=== PATIENT | female | born 1980 | race Two or more races ===

== ENCOUNTER 2017-11-20 11:02 | Emergency (ER) | payer MEDICAID ==
[~2017-11-20] VITALS: Ht 170.2 cm; Wt 70.3 kg
[2017-11-20] MEDS ORDERED: SODIUM CHLORIDE 0.9% 1,000 ML IVB ONE (11:18)
[2017-11-20] MEDS ORDERED: NALOXONE HCL 0.4 MG/ML VIAL IV ONE (11:30)
[2017-11-20 11:53] LABS: Basophils # (auto) 0 uL; Basophils % (auto) 0.4 % (0.0-2.0); Eosinophils # (auto) 0 uL; Eosinophils % (auto) 0.1 % (0.0-7.0); Lymphocytes # (auto) 1.4 uL; Monocytes # (auto) 0.3 uL; Platelet Count (auto) 185 10^3/uL (140-450)
[2017-11-20 11:55] LABS: Hematocrit 30.3 % (36.0-46.0); Lymphocytes % (auto) 24.6 % (10.0-50.0); Mean Corpuscular Hemoglobin 23.2 pg (28.0-32.0); Mean Corpuscular Hgb Conc. 33.1 g/dL (32.0-36.0); Mean Corpuscular Volume 69.9 fL (80.0-100.0); Monocytes % (auto) 4.6 % (0.0-12.0); Neutrophils # (auto) 4.1 uL; Neutrophils % (auto) 70.3 % (37.0-80.0); Nucleated Red Blood Cells % 0.1 %; Red Blood Cells 4.33 10^6/uL (4.0-5.20); Urine Bacteria NONE SEEN /hpf (None Seen); Urine Blood Negative /uL (Negative); Urine Specific Gravity 1.006 (1.001-1.035); Urine WBC <1 /hpf (0 - 5); White Blood Cell 5.8 10^3/uL (4.4-10.8)
[2017-11-20 12:00] LABS: Red Cell Distribution Width 22.7 % (11.8-14.3)
[2017-11-20] MEDS ORDERED: THIAMINE INJ 100 MG, MULTIPLE VITAMIN 10 ML, FOLIC ACID 1 MG, MAGNESIUM SULF SDV 50% 8 ... IV ONE ×5 (12:00)
[2017-11-20 12:05] LABS: INR 0.98 (0.9-1.15); Partial Thromboplastin Time 20.2 sec (23.78-33.04); Prothrombin Time 10.5 sec (9.27-12.13)
[2017-11-20 12:18] LABS: Albumin 3.5 g/dL (3.4-5.0); BUN/Creatinine Ratio 16.7; Bilirubin, Total 0.8 mg/dL (0.2-1.0); Calcium 7.6 mg/dL (8.5-10.1); Potassium 3.4 mmol/L (3.5-5.1); Total Protein 7.1 g/dL (6.4-8.2)
[2017-11-20 12:31] LABS: Amphetamine Screen, Urine NEGATIVE (NEGATIVE); Barbiturate Scree,Urine NEGATIVE (NEGATIVE); Benzodiazephine Screen, Urine NEGATIVE (NEGATIVE); Cannabinoid Screen, Urine NEGATIVE (NEGATIVE); Cocaine Screen, Urine NEGATIVE (NEGATIVE); Opiate Scree,Urine NEGATIVE (NEGATIVE); Phencyclidine Screen, Urine NEGATIVE (NEGATIVE)
[2017-11-20] MEDS ORDERED: SODIUM CHLORIDE 0.9% 1,000 ML IV ONE ×2 (13:15→13:45)
[2017-11-20 16:41] VITALS: BP 129/77
== END 2017-11-20 17:23 | disposition left against medical advice (07) ==
LOC: EDBD → ER 11:02
DX: F10.120 Alcohol abuse with intoxication, uncomplicated (principal); F10.20 Alcohol dependence, uncomplicated; Z53.29 Procedure and treatment not carried out because of patient's decision for other reasons
CPT/HCPCS: 36415; 51702; 70450; 80053; 80307; 80320; 81001; 85025; 85610; 85730; 94761; 96361; 96365; 96366; 96375; 99285; J2310; J3411; J3475; 99291

== ENCOUNTER 2017-11-26 16:15 | Emergency (ER) | payer MEDICAID ==
[~2017-11-26] VITALS: Ht 167.6 cm; Wt 54.4 kg
[2017-11-26] MEDS ORDERED: SODIUM CHLORIDE 0.9% 2,000 ML IV ONE (17:02)
[2017-11-26 17:14] LABS: Basophils # (auto) 0 uL; Eosinophils # (auto) 0 uL; Hemoglobin 9.4 g/dL (12.2-16.2); Monocytes # (auto) 0.2 uL; Platelet Count (auto) 63 10^3/uL (140-450)
[2017-11-26 17:15] LABS: Basophils % (auto) 0.5 % (0.0-2.0); Eosinophils % (auto) 0.8 % (0.0-7.0); Hematocrit 28.9 % (36.0-46.0); Lymphocytes % (auto) 33.8 % (10.0-50.0); Mean Corpuscular Hemoglobin 23.2 pg (28.0-32.0); Mean Corpuscular Hgb Conc. 32.5 g/dL (32.0-36.0); Mean Corpuscular Volume 71.3 fL (80.0-100.0); Monocytes % (auto) 7.9 % (0.0-12.0); Neutrophils # (auto) 1.7 uL; Nucleated Red Blood Cells % 0.2 %; Red Blood Cells 4.05 10^6/uL (4.0-5.20)
[2017-11-26 17:22] LABS: Urine Bacteria NONE SEEN /hpf (None Seen); Urine Blood 1+ /uL (Negative); Urine Mucus FEW (None Seen); Urine Specific Gravity 1.008 (1.001-1.035); Urine WBC 3 /hpf (0 - 5)
[2017-11-26 17:26] LABS: Red Cell Distribution Width 24.4 % (11.8-14.3)
[2017-11-26] MEDS ORDERED: THIAMINE INJ 100 MG, MULTIPLE VITAMIN 10 ML, FOLIC ACID 1 MG, MAGNESIUM SULF SDV 50% 8 ... IV SCH ×5 (17:30)
[2017-11-26 17:40] LABS: Amphetamine Screen, Urine NEGATIVE (NEGATIVE); Barbiturate Scree,Urine NEGATIVE (NEGATIVE); Benzodiazephine Screen, Urine NEGATIVE (NEGATIVE); Cannabinoid Screen, Urine NEGATIVE (NEGATIVE); Cocaine Screen, Urine NEGATIVE (NEGATIVE); Opiate Scree,Urine NEGATIVE (NEGATIVE); Phencyclidine Screen, Urine NEGATIVE (NEGATIVE)
[2017-11-26 17:48] LABS: Albumin 3.5 g/dL (3.4-5.0); BUN/Creatinine Ratio 8.3; Bilirubin, Total 0.5 mg/dL (0.2-1.0); Calcium 7.7 mg/dL (8.5-10.1)
[2017-11-26 17:53] LABS: Potassium 2.6 mmol/L (3.5-5.1)
[2017-11-26] MEDS ORDERED: POTASSIUM CHL 20 Meq TABLET PO ONE (18:00)
[2017-11-26] MEDS: POTASSIUM CHL 20MEQ/100ML 100 ML IV SCH ×2 (19:00→21:29)
[2017-11-27 01:20] VITALS: BP 132/75
[2017-11-27 02:40] LABS: BUN/Creatinine Ratio 9.1; Calcium 6.6 mg/dL (8.5-10.1); Potassium 3.4 mmol/L (3.5-5.1)
[2017-11-27 02:57] LABS: Bilirubin, Total 0.4 mg/dL (0.2-1.0)
== END 2017-11-27 02:57 | disposition home or self-care (01) ==
LOC: EDBD → EDSEX 16:15 → ER 16:18
DX: M54.2 Cervicalgia (principal); F10.129 Alcohol abuse with intoxication, unspecified; Y90.8 Blood alcohol level of 240 mg/100 ml or more
CPT/HCPCS: 36415; 70450; 70486; 72040; 72125; 80053; 80307; 80320; 81001; 81025; 85025; 96365; 96366; 96368; 99285; J3411; J3475; J3480; J7030

== ENCOUNTER 2017-11-28 14:42 | Inpatient (IN) | payer MEDICAID ==
[~2017-11-28] VITALS: Ht 165.1 cm; Wt 68.5 kg
[2017-11-28 15:28] LABS: Basophils # (auto) 0 uL; Eosinophils # (auto) 0 uL; Lymphocytes # (auto) 1.3 uL; Monocytes # (auto) 0.2 uL; Neutrophils # (auto) 1.5 uL; Platelet Count (auto) 51 10^3/uL (140-450); White Blood Cell 3.1 10^3/uL (4.4-10.8)
[2017-11-28 15:30] LABS: Basophils % (auto) 0.8 % (0.0-2.0); Eosinophils % (auto) 1.6 % (0.0-7.0); Hematocrit 26.9 % (36.0-46.0); Hemoglobin 8.7 g/dL (12.2-16.2); Lymphocytes % (auto) 42.4 % (10.0-50.0); Mean Corpuscular Hemoglobin 23.3 pg (28.0-32.0); Mean Corpuscular Hgb Conc. 32.5 g/dL (32.0-36.0); Mean Corpuscular Volume 71.6 fL (80.0-100.0); Monocytes % (auto) 6.3 % (0.0-12.0); Neutrophils % (auto) 48.9 % (37.0-80.0); Red Blood Cells 3.75 10^6/uL (4.0-5.20)
[2017-11-28 15:42] LABS: Red Cell Distribution Width 23.9 % (11.8-14.3)
[2017-11-28 15:47] LABS: BUN/Creatinine Ratio 11.3; Bilirubin, Total 0.3 mg/dL (0.2-1.0); Calcium 6.8 mg/dL (8.5-10.1); Magnesium 2.2 mg/dL (1.6-2.6); Potassium 3.1 mmol/L (3.5-5.1); Total Protein 6.1 g/dL (6.4-8.2)
[2017-11-28 16:28] LABS: Blood Alcohol 525.3 mg/dL (0-5)
[2017-11-28 17:19] LABS: Urine WBC None Seen /hpf (0 - 5)
[2017-11-28 17:21] LABS: Partial Thromboplastin Time 23.5 sec (23.78-33.04); Prothrombin Time 10.7 sec (9.27-12.13)
[2017-11-28 17:23] LABS: Acetaminophen < 2.0 ug/mL (10-30); Salicylate < 1.7 mg/dL (2.8-20.0)
[2017-11-28 17:43] LABS: Urine Bacteria NONE SEEN /hpf (None Seen); Urine Blood Negative /uL (Negative); Urine Specific Gravity 1.004 (1.001-1.035)
[2017-11-28 17:44] LABS: Urine Pregnacy Test Negative (Negative)
[2017-11-28 17:48] LABS: Amphetamine Screen, Urine NEGATIVE (NEGATIVE); Barbiturate Scree,Urine NEGATIVE (NEGATIVE); Benzodiazephine Screen, Urine NEGATIVE (NEGATIVE); Cannabinoid Screen, Urine POSITIVE (NEGATIVE); Cocaine Screen, Urine NEGATIVE (NEGATIVE); Opiate Scree,Urine NEGATIVE (NEGATIVE); Phencyclidine Screen, Urine NEGATIVE (NEGATIVE)
[2017-11-28] MEDS ORDERED: SODIUM CHLORIDE 0.9% 1,000 ML IV ONE ×3 (18:00→18:45)
[2017-11-28] MEDS ORDERED: THIAMINE INJ 100 MG, MULTIPLE VITAMIN 10 ML, FOLIC ACID 1 MG, MAGNESIUM SULF SDV 50% 8 ... IV SCH ×5 (18:30)
[2017-11-28] MEDS ORDERED: DOCUSATE SOD 100 MG CAP PO PRN (18:45)
[2017-11-28] MEDS ORDERED: POTASSIUM CHL 20MEQ/100ML 100 ML IV ONE (18:45)
[2017-11-28] MEDS ORDERED: ONDANSETRON HCL 4 MG/2 ML VIAL IV PRN (18:45)
[2017-11-28] MEDS ORDERED: ALUM & MAG HYDROX-SIMETH LIQ(MAALOX) 30 ML PO PRN (18:45)
[2017-11-28] MEDS ORDERED: HYDROcodone-ACET 5/325MG TAB PO PRN (18:45)
[2017-11-28] MEDS ORDERED: chlordiazePOXIDE HCL 25 MG CAP PO PRN (18:45)
[2017-11-28] MEDS ORDERED: ACETAMINOPHEN 325 MG TAB PO PRN (18:45)
[2017-11-28] MEDS ORDERED: NITROGLYCERIN 0.4 MG SL TAB SL PRN (18:45)
[2017-11-28] MEDS ORDERED: MORPHINE SULF INJ 2 MG/ML SYRINGE 1ML IV PRN ×2 (18:45)
[2017-11-28] MEDS: SODIUM CHLORIDE 0.9% 1,000 ML IV SCH (19:09)
[2017-11-28] MEDS: LORazepam 2MG/ML-1ML VIAL IV PRN ×2 (20:02→21:45)
[2017-11-28 21:50] VITALS: BP 109/62
[2017-11-28] MEDS ORDERED: ATENOLOL 25 MG TAB PO SCH (22:00)
[2017-11-28] MEDS ORDERED: FAMOTIDINE 20 MG TAB PO SCH (22:00)
[2017-11-28] MEDS: GABAPENTIN 300 MG CAP PO SCH (22:00)
[2017-11-28 23:18] VITALS: BP 109/62
[2017-11-29] MEDS ORDERED: ACET-1156 PO (01:32)
[2017-11-29] MEDS: SODIUM CHLORIDE 0.9% 1,000 ML IV SCH (03:15)
[2017-11-29 04:43] VITALS: BP 129/80
[2017-11-29] MEDS: GABAPENTIN 300 MG CAP PO SCH (05:21)
[2017-11-29 06:07] LABS: White Blood Cell 2.6 10^3/uL (4.4-10.8)
[2017-11-29 06:11] LABS: Hematocrit 23.7 % (36.0-46.0); Mean Corpuscular Hgb Conc. 33.6 g/dL (32.0-36.0); Mean Corpuscular Volume 71.5 fL (80.0-100.0); Red Blood Cells 3.31 10^6/uL (4.0-5.20)
[2017-11-29 06:12] LABS: Red Cell Distribution Width 23.8 % (11.8-14.3)
[2017-11-29 06:13] LABS: Platelet Count (auto) 46 10^3/uL (140-450)
[2017-11-29 06:14] LABS: Band Neutrophils % (manual) 0; Basophils % (manual) 0 (0.0-2.0); Blast Cells 0; Metamyelocytes % 0; Myelocytes % 0; Promyelocytes % 0; Reactive Lymphocytes 0
[2017-11-29 06:28] LABS: Potassium 3.1 mmol/L (3.5-5.1)
[2017-11-29 06:35] LABS: Albumin 2.6 g/dL (3.4-5.0); BUN/Creatinine Ratio 11.9; Calcium 6.2 mg/dL (8.5-10.1)
[2017-11-29 06:37] LABS: Bilirubin, Total 0.5 mg/dL (0.2-1.0); Total Protein 5.3 g/dL (6.4-8.2)
[2017-11-29 06:56] LABS: Lymphocytes % (manual) 64 (10.0-50.0); Monocytes % (manual) 3 (0-12)
[2017-11-29 06:57] LABS: Eosinophils % (manual) 1 (0-7)
[2017-11-29 08:00] VITALS: BP 135/82
[2017-11-29] MEDS ORDERED: Ensure Enlive Strawberry 8oz Bottle PO SCH (08:00)
[2017-11-29] MEDS ORDERED: MULTIPLE VITAMIN TAB PO SCH (10:00)
== END 2017-11-29 09:30 | disposition left against medical advice (07) | DRG 52 ==
LOC: EDBD → ER 14:45 → TELE 14:46 → TELE-WESTW 21:50
PROVIDERS: ADMIT Internal Medicine; ATTEND Internal Medicine
DX: G92 Toxic encephalopathy (principal); D69.6 Thrombocytopenia, unspecified; R65.10 Systemic inflammatory response syndrome (SIRS) of non-infectious origin without acute organ dysfunction; E44.0 Moderate protein-calorie malnutrition; E83.51 Hypocalcemia; F10.129 Alcohol abuse with intoxication, unspecified; E87.6 Hypokalemia; D50.9 Iron deficiency anemia, unspecified; S00.10XA Contusion of unspecified eyelid and periocular area, initial encounter; Z59.0 Homelessness; Z91.410 Personal history of adult physical and sexual abuse; F17.200 Nicotine dependence, unspecified, uncomplicated; Z53.21 Procedure and treatment not carried out due to patient leaving prior to being seen by health care provider; Z68.25 Body mass index [BMI] 25.0-25.9, adult
CPT/HCPCS: 36415; 51702; 70450; 71045; 80053; 80307; 80320; 80329; 81001; 81025; 83735; 84702; 85007; 85025; 85027; 85610; 85730; 93005; 94761; 96361; 96365; 96375; J3480

== ENCOUNTER 2017-11-30 18:43 | Emergency (ER) | payer MEDICAID ==
[~2017-11-30] VITALS: Ht 167.6 cm; Wt 59.0 kg
[~2017-11-30 18:43] MED LIST: ACET-1156 PO
[2017-11-30 18:50] VITALS: BP 135/79
== END 2017-11-30 21:45 | disposition left against medical advice (07) ==
LOC: EDBD → ER 18:47
DX: F10.10 Alcohol abuse, uncomplicated (principal); Z53.21 Procedure and treatment not carried out due to patient leaving prior to being seen by health care provider

== ENCOUNTER 2017-12-07 19:04 | Emergency (ER) | payer SELFPAY ==
[~2017-12-07] VITALS: Ht 170.2 cm; Wt 70.3 kg
[2017-12-07] MEDS ORDERED: SODIUM CHLORIDE 0.9% 1,000 ML IVB ONE (19:22)
[2017-12-07 20:12] LABS: Urine WBC None Seen /hpf (0 - 5)
[2017-12-07 20:46] LABS: Partial Thromboplastin Time 25.4 sec (23.78-33.04); Prothrombin Time 10.7 sec (9.27-12.13)
[2017-12-07 20:51] LABS: Urine Bacteria FEW /hpf (None Seen); Urine Blood 1+ /uL (Negative); Urine Specific Gravity 1.002 (1.001-1.035)
[2017-12-07 20:51] LABS: Lactic Acid w/Reflex 2.4 mmol/L (0.4-2.0)
[2017-12-07 20:58] LABS: Amphetamine Screen, Urine NEGATIVE (NEGATIVE); Barbiturate Scree,Urine NEGATIVE (NEGATIVE); Benzodiazephine Screen, Urine NEGATIVE (NEGATIVE); Cannabinoid Screen, Urine NEGATIVE (NEGATIVE); Cocaine Screen, Urine NEGATIVE (NEGATIVE); Opiate Scree,Urine NEGATIVE (NEGATIVE); Phencyclidine Screen, Urine NEGATIVE (NEGATIVE)
[2017-12-07 21:00] LABS: Platelet Count (auto) 33 10^3/uL (140-450); White Blood Cell 2.4 10^3/uL (4.4-10.8)
[2017-12-07 21:01] LABS: Alanine Aminotransferase 86 U/L (13-56); Albumin 3.4 g/dL (3.4-5.0); Alkaline Phosphatase 80 U/L (45-117); Anion Gap 8 (5-15); Aspartate Aminotransferase 162 U/L (15-37); BUN/Creatinine Ratio 7.4; Bilirubin, Total 0.6 mg/dL (0.2-1.0); Blood Urea Nitrogen 5 mg/dL (7-18); Calcium 7.6 mg/dL (8.5-10.1); Carbon Dioxide 27 mmol/L (21-32); Chloride 106 mmol/L (98-107); GFR African American 125 mL/min; GFR Non-African American 103 mL/min; Glucose 90 mg/dL (74-106); Potassium 3.2 mmol/L (3.5-5.1); Sodium 141 mmol/L (136-145); Total Protein 6.5 g/dL (6.4-8.2)
[2017-12-07 21:02] LABS: Hematocrit 27.1 % (36.0-46.0); Hemoglobin 8.9 g/dL (12.2-16.2); Mean Corpuscular Hemoglobin 24.2 pg (28.0-32.0); Mean Corpuscular Hgb Conc. 32.8 g/dL (32.0-36.0); Mean Corpuscular Volume 73.7 fL (80.0-100.0); Red Blood Cells 3.68 10^6/uL (4.0-5.20)
[2017-12-07 21:17] LABS: Red Cell Distribution Width 26.7 % (11.8-14.3)
[2017-12-07 21:19] LABS: Band Neutrophils % (manual) 0; Basophils % (manual) 0 (0.0-2.0); Blast Cells 0; Metamyelocytes % 0; Myelocytes % 0; Promyelocytes % 0; Reactive Lymphocytes 0
[2017-12-07 22:10] LABS: Eosinophils % (manual) 1 (0-7); Lymphocytes % (manual) 55 (10.0-50.0); Monocytes % (manual) 4 (0-12)
[2017-12-07] MEDS ORDERED: SODIUM CHLORIDE 0.9% 1,000 ML IV ONE (22:45)
[2017-12-08 06:09] VITALS: BP 122/83
== END 2017-12-08 07:56 | disposition home or self-care (01) ==
LOC: EDBD → ER 19:09 → EDUNIT# 19:09 → ER 12-08 07:56
DX: F10.120 Alcohol abuse with intoxication, uncomplicated (principal); Z59.0 Homelessness
CPT/HCPCS: 36415; 36600; 70450; 71045; 80053; 80307; 80320; 81001; 81025; 82805; 83605; 83735; 84484; 85007; 85027; 85610; 85730; 93005; 96360; 96361; 99285; J7030

== ENCOUNTER 2017-12-12 01:12 | Emergency (ER) | payer MEDICAID ==
[~2017-12-12] VITALS: Ht 165.1 cm; Wt 59.0 kg
[2017-12-12 02:22] LABS: Hemoglobin 8.8 g/dL (12.2-16.2); Platelet Count (auto) 47 10^3/uL (140-450); Red Blood Cells 3.68 10^6/uL (4.0-5.20)
[2017-12-12 02:23] LABS: Hematocrit 27.5 % (36.0-46.0); Mean Corpuscular Hgb Conc. 32.1 g/dL (32.0-36.0); Mean Corpuscular Volume 74.7 fL (80.0-100.0)
[2017-12-12 02:32] LABS: Amphetamine Screen, Urine NEGATIVE (NEGATIVE); Barbiturate Scree,Urine NEGATIVE (NEGATIVE); Benzodiazephine Screen, Urine NEGATIVE (NEGATIVE); Cannabinoid Screen, Urine NEGATIVE (NEGATIVE); Cocaine Screen, Urine NEGATIVE (NEGATIVE); Opiate Scree,Urine NEGATIVE (NEGATIVE); Phencyclidine Screen, Urine NEGATIVE (NEGATIVE); Urine Bacteria NONE SEEN /hpf (None Seen); Urine Blood Negative /uL (Negative); Urine Specific Gravity 1.002 (1.001-1.035); Urine WBC <1 /hpf (0 - 5)
[2017-12-12 02:38] LABS: INR 1.05 (0.9-1.15); Partial Thromboplastin Time 23.4 sec (23.78-33.04); Prothrombin Time 11.2 sec (9.27-12.13)
[2017-12-12 02:41] LABS: Albumin 3.3 g/dL (3.4-5.0); Anion Gap 9 (5-15); BUN/Creatinine Ratio 4.9; Blood Urea Nitrogen 3 mg/dL (7-18); Calcium 6.9 mg/dL (8.5-10.1); Carbon Dioxide 31 mmol/L (21-32); Chloride 102 mmol/L (98-107); GFR African American 148 mL/min; GFR Non-African American 122 mL/min; Glucose 106 mg/dL (74-106); Salicylate < 1.7 mg/dL (2.8-20.0); Sodium 142 mmol/L (136-145)
[2017-12-12 02:43] LABS: Lactic Acid w/Reflex 2.2 mmol/L (0.4-2.0)
[2017-12-12 02:48] LABS: Acetaminophen < 2.0 ug/mL (10-30)
[2017-12-12 02:50] LABS: Alkaline Phosphatase 82 U/L (45-117); Aspartate Aminotransferase 189 U/L (15-37); Bilirubin, Total 0.5 mg/dL (0.2-1.0); Red Cell Distribution Width 27.5 % (11.8-14.3); Total Protein 6.5 g/dL (6.4-8.2)
[2017-12-12 02:53] LABS: Alanine Aminotransferase 93 U/L (13-56)
[2017-12-12 02:54] LABS: Potassium 2.9 mmol/L (3.5-5.1); White Blood Cell 1.7 10^3/uL (4.4-10.8)
[2017-12-12 02:56] LABS: Band Neutrophils % (manual) 0; Basophils % (manual) 0 (0.0-2.0); Blast Cells 0; Eosinophils % (manual) 0 (0-7); Metamyelocytes % 0; Myelocytes % 0; Promyelocytes % 0; Reactive Lymphocytes 0
[2017-12-12 03:14] LABS: Lymphocytes % (manual) 68 (10.0-50.0); Monocytes % (manual) 10 (0-12)
[2017-12-12] MEDS ORDERED: SODIUM CHLORIDE 0.9% 3,000 ML IV ONE (03:45)
[2017-12-12] MEDS: POTASSIUM CHL 20MEQ/100ML 100 ML IV SCH ×3 (03:57→08:37)
[2017-12-12] MEDS ORDERED: THIAMINE INJ 100 MG, MULTIPLE VITAMIN 10 ML, FOLIC ACID 1 MG, MAGNESIUM SULF SDV 50% 8 ... IV ONE ×5 (09:45)
[2017-12-12 10:48] VITALS: BP 129/91
== END 2017-12-12 12:26 | disposition left against medical advice (07) ==
LOC: EDUNIT# 01:20 → EDBD 01:20 → ER 01:20
DX: F10.129 Alcohol abuse with intoxication, unspecified (principal); R41.82 Altered mental status, unspecified; E87.6 Hypokalemia; G93.89 Other specified disorders of brain; Z79.899 Other long term (current) drug therapy; Y90.8 Blood alcohol level of 240 mg/100 ml or more
CPT/HCPCS: 36415; 51702; 70450; 71045; 80053; 80307; 80320; 80329; 81001; 83605; 84132; 84484; 85007; 85027; 85610; 85730; 93005; 94761; 96361; 96365; 96366; 96368; 99285; J3411; J3475; J3480; J7030

== ENCOUNTER 2017-12-27 23:53 | Emergency (ER) | payer MEDICAID ==
[~2017-12-27] VITALS: Ht 167.6 cm; Wt 54.4 kg
[2017-12-28 00:57] LABS: Basophils # (auto) 0 uL; Basophils % (auto) 0.8 % (0.0-2.0); Eosinophils # (auto) 0 uL; Eosinophils % (auto) 1.1 % (0.0-7.0); Hemoglobin 9.3 g/dL (12.2-16.2); Monocytes # (auto) 0.4 uL; Monocytes % (auto) 11.4 % (0.0-12.0); Neutrophils # (auto) 2.4 uL
[2017-12-28 00:58] LABS: Urine Bacteria NONE SEEN /hpf (None Seen); Urine Blood 1+ /uL (Negative); Urine Mucus FEW (None Seen); Urine Specific Gravity 1.018 (1.001-1.035); Urine WBC 3 /hpf (0 - 5)
[2017-12-28 00:59] LABS: Hematocrit 28.5 % (36.0-46.0); Lymphocytes # (auto) 0.9 uL; Lymphocytes % (auto) 24.6 % (10.0-50.0); Mean Corpuscular Hemoglobin 25.2 pg (28.0-32.0); Mean Corpuscular Hgb Conc. 32.7 g/dL (32.0-36.0); Neutrophils % (auto) 62.1 % (37.0-80.0); White Blood Cell 3.8 10^3/uL (4.4-10.8)
[2017-12-28 01:04] LABS: Red Cell Distribution Width 25.7 % (11.8-14.3)
[2017-12-28 01:05] LABS: Platelet Count (auto) 108 10^3/uL (140-450)
[2017-12-28 01:07] LABS: INR 0.93 (0.9-1.15); Partial Thromboplastin Time 20.8 sec (23.78-33.04)
[2017-12-28 01:13] LABS: Albumin 3.8 g/dL (3.4-5.0); BUN/Creatinine Ratio 14.9; Calcium 8.6 mg/dL (8.5-10.1); Magnesium 1.7 mg/dL (1.6-2.6)
[2017-12-28 01:15] LABS: Bilirubin, Total 1.1 mg/dL (0.2-1.0); Total Protein 7.7 g/dL (6.4-8.2)
[2017-12-28 01:16] LABS: Alcohol, Urine < 3.0 mg/dL (0-5); Amphetamine Screen, Urine NEGATIVE (NEGATIVE); Barbiturate Scree,Urine NEGATIVE (NEGATIVE); Benzodiazephine Screen, Urine NEGATIVE (NEGATIVE); Cannabinoid Screen, Urine NEGATIVE (NEGATIVE); Cocaine Screen, Urine NEGATIVE (NEGATIVE); Opiate Scree,Urine NEGATIVE (NEGATIVE); Phencyclidine Screen, Urine NEGATIVE (NEGATIVE)
[2017-12-28] MEDS ORDERED: LORazepam 0.5 MG TAB PO ONE (03:00)
[2017-12-28] MEDS ORDERED: THIAMINE 100mg/ml INJ (200mg/2ml VIAL) ONE (05:28)
[2017-12-28] MEDS ORDERED: LORazepam 2MG/ML-1ML VIAL IV ONE (05:30)
[2017-12-28] MEDS ORDERED: THIAMINE INJ 100 MG, MULTIPLE VITAMIN 10 ML, FOLIC ACID 1 MG, MAGNESIUM SULF SDV 50% 8 ... IV ONE ×5 (05:30)
[2017-12-28] MEDS ORDERED: cloNIDine HCL 0.1 MG TAB ONE (05:36)
[2017-12-28 05:37] VITALS: BP 171/109
[2017-12-28] MEDS ORDERED: cloNIDine HCL 0.1 MG TAB PO ONE (05:45)
== END 2017-12-28 06:25 | disposition home or self-care (01) ==
LOC: ER 23:53
DX: K72.90 Hepatic failure, unspecified without coma (principal); K12.0 Recurrent oral aphthae; L30.9 Dermatitis, unspecified; Z95.0 Presence of cardiac pacemaker
CPT/HCPCS: 36415; 80053; 80307; 80320; 81001; 83735; 84702; 85025; 85610; 85730; 96365; 96375; 99284; J2060; J3411; J3475; J7030

== ENCOUNTER 2018-07-02 07:31 | Emergency (ER) | payer MEDICAID ==
[~2018-07-02] VITALS: Ht 160 cm; Wt 59.0 kg
[2018-07-02] MEDS ORDERED: SODIUM CHLORIDE 0.9% 1,000 ML IV ONE ×2 (08:37)
[2018-07-02 09:41] LABS: Basophils # (auto) 0 uL; Eosinophils # (auto) 0 uL; Eosinophils % (auto) 0.3 % (0.0-7.0); Lymphocytes # (auto) 1.1 uL; Lymphocytes % (auto) 25.7 % (10.0-50.0); Mean Corpuscular Hemoglobin 24.7 pg (28.0-32.0); Monocytes # (auto) 0.2 uL
[2018-07-02 09:43] LABS: Basophils % (auto) 0.4 % (0.0-2.0); Hematocrit 35.9 % (36.0-46.0); Hemoglobin 11.7 g/dL (12.2-16.2); Mean Corpuscular Hgb Conc. 32.6 g/dL (32.0-36.0); Mean Corpuscular Volume 75.8 fL (80.0-100.0); Monocytes % (auto) 4.9 % (0.0-12.0); Neutrophils # (auto) 2.8 uL; Neutrophils % (auto) 68.7 % (37.0-80.0); Nucleated Red Blood Cells % 0.1 %; Platelet Count (auto) 168 10^3/uL (140-450); Red Blood Cells 4.74 10^6/uL (4.0-5.20); White Blood Cell 4.1 10^3/uL (4.4-10.8)
[2018-07-02 09:47] LABS: Red Cell Distribution Width 21.7 % (11.8-14.3)
[2018-07-02 09:51] LABS: Potassium 3.4 mmol/L (3.5-5.1)
[2018-07-02 09:54] LABS: Albumin 3.6 g/dL (3.4-5.0); Calcium 7.5 mg/dL (8.5-10.1)
[2018-07-02 09:58] LABS: Salicylate < 1.7 mg/dL (2.8-20.0)
[2018-07-02 10:01] LABS: Bilirubin, Total 0.3 mg/dL (0.2-1.0); Total Protein 6.6 g/dL (6.4-8.2)
[2018-07-02 10:02] LABS: Acetaminophen < 2.0 ug/mL (10-30)
[2018-07-02 12:07] VITALS: BP 99/56
== END 2018-07-02 13:00 | disposition left against medical advice (07) ==
LOC: EDBD 07:31 → ER 07:37
DX: F10.129 Alcohol abuse with intoxication, unspecified (principal); E16.2 Hypoglycemia, unspecified; R41.82 Altered mental status, unspecified; Y90.9 Presence of alcohol in blood, level not specified
CPT/HCPCS: 36415; 80053; 80320; 80329; 82962; 85025; 96360; 96361; 99283; J7030